=== PATIENT | female | born 1975 | race Two or more races ===

== ENCOUNTER 2017-08-12 10:23 | Outpatient (CLI) | payer OTHER | END 2017-08-12 10:35 | disposition home or self-care (01) | LOC: MAMO-SONO 10:23 | DX: B34.9 Viral infection, unspecified (principal); Z01.01 Encounter for examination of eyes and vision with abnormal findings; Z12.31 Encounter for screening mammogram for malignant neoplasm of breast; Z12.11 Encounter for screening for malignant neoplasm of colon ==

== ENCOUNTER 2022-10-19 10:24 | Outpatient (CLI) | payer OTHER | END 2022-10-19 10:35 | disposition home or self-care (01) | LOC: MAMO-SONO 10:24 | PROVIDERS: ATTEND Specialist | DX: Z12.31 Encounter for screening mammogram for malignant neoplasm of breast (principal); N63.0 Unspecified lump in unspecified breast ==